=== PATIENT | female | born 1935 | race Caucasian/White ===

== ENCOUNTER 2017-05-31 15:37 | Inpatient (IN) | payer MEDICARE, BC ==
[2017-05-31] MEDS ORDERED: Meclizine 25 MG Tab PO PRN (17:16)
[2017-05-31] MEDS ORDERED: Albuterol HFA 18 Gm Inhaler INH PRN (17:16)
[2017-05-31] MEDS ORDERED: Carboxymethylcellulose Sodium 0.5% Ophth Soln 15 ML Bottle EYEBOTH PRN (18:30)
[2017-05-31] MEDS: Magnesium Oxide 500 MG Tab PO SCH (19:46)
[2017-05-31] MEDS: Pantoprazole 40 MG Tab.CR PO SCH (19:46)
[2017-05-31] MEDS: Budesonide 0.5 MG/2 ML Neb Susp INH SCH (20:49)
[2017-05-31] MEDS: atorvaSTATin 40 MG Tab PO SCH (20:54)
[2017-05-31] MEDS: Gabapentin 300 MG Cap PO SCH (20:54)
[2017-05-31] MEDS: Apixaban 5 MG Tab PO SCH (20:54)
[2017-05-31] MEDS: Metoprolol Tartrate 25 MG Tab PO SCH (20:55)
[2017-05-31] MEDS: Arformoterol 15 MCG/2 ML Neb Soln INH SCH (21:03)
[2017-05-31] MEDS: ALPRAZolam 0.25 MG Tab PO PRN (22:38)
[2017-06-01] MEDS: Cetirizine 10 MG Tab PO SCH (08:05)
[2017-06-01] MEDS: Allopurinol 100 MG Tab PO SCH (08:05)
[2017-06-01] MEDS: Gabapentin 300 MG Cap PO SCH ×2 (08:05→20:33)
[2017-06-01] MEDS: Digoxin 125 MCG Tab PO SCH (08:05)
[2017-06-01] MEDS: Metoprolol Tartrate 25 MG Tab PO SCH ×2 (08:05→20:36)
[2017-06-01] MEDS: Multivitamins with Minerals/Iron/Folic Acid/Lycopene Tab PO SCH (08:06)
[2017-06-01] MEDS: Aspirin 81 MG Tab.Chew PO SCH (08:06)
[2017-06-01] MEDS: Arformoterol 15 MCG/2 ML Neb Soln INH SCH ×2 (08:06→20:29)
[2017-06-01] MEDS: Pantoprazole 40 MG Tab.CR PO SCH ×2 (08:06→17:27)
[2017-06-01] MEDS: Budesonide 0.5 MG/2 ML Neb Susp INH SCH ×2 (08:06→20:40)
[2017-06-01] MEDS: Magnesium Oxide 500 MG Tab PO SCH ×2 (08:06→18:08)
[2017-06-01] MEDS: Apixaban 5 MG Tab PO SCH ×2 (09:16→20:34)
--- NOTE | 2017-06-01 09:49 | PCM.HP ---
H&P History of Present Illness - General Date of Service: 06/01/17 Admit Problem/Dx: Admission Diagnosis/Problem Admission Diagnosis/Problem Physical deconditioning Source of Information: Patient, Old Records - History of Present Illness Initial Comments - Free Text/Narative: Very pleasant 81-year-old female is here for rehabilitation due to a long acute care hospitalization due to fever unknown origin however thought to be possible viral etiology. She was placed in swing bed status after she was transferred here from [facility] in [place]. Patient was evaluated initially in the ED on May 16 due to chills and was determined her temperature was 103 slight elevated BNP of 292 however although workup was unremarkable for any inflammatory elevation with normal WBC, lactic acid, procalcitonin levels. Her UA and chest x-ray were negative. Patient was treated and released home she soon started having chills again and progressively worsening along with fever and some shortness of breath. Repeat examination was suggestive of urinary tract infection however CT of the chest at in pelvis were negative for any PE. Recent dx with nonoperable Stage I Lung Ca. was to start with radiation but is postponed due to recent illness. Over time she became quite debilitated and weak requiring physical therapy. Patient goals are to crease her endurance and stamina in order to be back more independently in her home. - Related Data Allergies/Adverse Reactions: Allergies Allergy/AdvReac Type Severity Reaction Status Date / Time adenosine Allergy Other Verified 05/31/17 16:25 erythromycin base Allergy Other Verified 05/31/17 16:25 ezetimibe Allergy Other Verified 05/31/17 16:25 fluticasone Allergy Other Verified 05/31/17 16:25 [From Advair Diskus] salmeterol Allergy Other Verified 05/31/17 16:25 [From Advair Diskus] tiotropium Allergy Other Verified 05/31/17 16:25 [From Spiriva with HandiHaler] Home Medications: Home Meds ALPRAZolam [Xanax] 0.25 - 0.5 mg PO DAILY PRN 05/31/17 [History] Albuterol [Ventolin HFA] 2 puff INH Q2H PRN 05/31/17 [History] Allopurinol [Zyloprim] 100 mg PO DAILY 05/31/17 [History] Apixaban [Eliquis] 5 mg PO BID 05/31/17 [History] Arformoterol [Brovana] 15 mcg INH BID 05/31/17 [History] Aspirin 81 mg PO MOWEFR@0800 05/31/17 [History] Budesonide [Pulmicort] 0.5 mg INH BID 05/31/17 [History] Cetirizine [ZyrTEC] 10 mg PO DAILY 05/31/17 [History] Cyanocobalamin (Vitamin B-12) [Cyanocobalamin Injection] 1,000 mcg IM Q30D 05/31 [History] Digoxin [Lanoxin] 125 mcg PO DAILY 05/31/17 [History] Gabapentin [Neurontin] 600 mg PO BID 05/31/17 [History] Ipratropium Mars 2 sprays NASBOTH TID 05/31/17 [History] Magnesium Oxide 400 mg PO BIDMEALS 05/31/17 [History] Meclizine [Antivert] 25 mg PO TID PRN 05/31/17 [History] Metoprolol Tartrate 25 mg PO BID 05/31/17 [History] Multivitamin [Multi-Vitamin Daily] 1 tab PO DAILY 05/31/17 [History] PEG 400/Hypromellose/Glycerin [Artificial Tears Drops] 1 - 2 drop EYEBOTH QID PRN 05/31/17 [History] Pantoprazole [ProTONIX] 40 mg PO BIDAC 05/31/17 [History] Vit C/E/Zn/Coppr/Lutein/Zeaxan [Preservision Areds 2 Softgel] 1 cap PO BID 05/31 [History] atorvaSTATin [Lipitor] 40 mg PO BEDTIME 05/31/17 [History] Past Medical History HEENT History: Reports: Cataract, Impaired Vision, Macular Degeneration Cardiovascular History: Reports: Afib, CAD, High Cholesterol, Hypertension, VT, SOB on Exertion Other Cardiovascular History: MIx2 Respiratory History: Reports: Bronchitis, Recurrent, COPD, Pneumonia, Recurrent , Sleep Apnea, SOB Genitourinary History: Reports: Acute Renal Failure, Urinary Incontinence BONBON DIPPER History: Reports: Musculoskeletal History: Reports: Arthritis, Fibromyalgia, Gout, Osteoarthritis , RA Neurological History: Reports: Headaches, Chronic Psychiatric History: Reports: Anxiety, Depression Endocrine/Metabolic History: Reports: Diabetes, Type II, Vitamin D Deficiency Other Endocrine/Metabolic History: diabetic neuropathy Hematologic History: Reports: Anemia, Blood Transfusion(s) Oncologic (Cancer) History: Reports: Lung, Malignant Melanoma - Infectious Disease History Infectious Disease History: Reports: Chicken Pox - Past Surgical History HEENT Surgical History: Reports: Cataract Surgery, Tonsillectomy Cardiovascular Surgical History: Reports: None Respiratory Surgical History: Reports: None GI Surgical History: Reports: Cholecystectomy, Colonoscopy Other GI Surgeries/Procedures: gastro bypass surgery Female Surgical History: Reports: Hysterectomy Endocrine Surgical History: Reports: None Neurological Surgical History: Reports: None Musculoskeletal Surgical History: Reports: None Oncologic Surgical History: Reports: None Social & Family History - Family History Cardiac: Reports: CAD, Other (See Below) (Father coronary artery disease, sister coronary artery disease along with brother and son) Respiratory: Reports: None GI: Reports: None : Reports: None OBGYN: Reports: None Musculoskeletal: Reports: None Neurological: Reports: None Psychiatric: Reports: Other (See Below) Other Psychiatric Family History: Brother has Alzheimer's disease Endocrine/Metabolic: Reports: None Hematologic: Reports: None Immunologic: Reports: None Dermatologic: Reports: None Oncologic: Reports: None - Tobacco Use Smoking Status *Q: Former Smoker Used Tobacco, but Quit: Yes Month Tobacco Last Used: 1979 - Recreational Drug Use Recreational Drug Use: No H&P Review of Systems - Review of Systems: Review Of Systems: See Below General: Reports: Diaphoresis, Decreased Appetite, Weight Loss. Denies: Night Sweats, Weight Gain HEENT: Reports: Sinus Congestion (uses nasal spray to dry her up. ). Denies: Hearing Changes, Sore Throat, Vertigo, Visual Changes Pulmonary: Reports: Shortness of Breath. Denies: Wheezing, Pleuritic Chest Pain , Cough (no more cough recent bronchitis), Sputum Cardiovascular: Reports: Orthopnea, PND, Edema Gastrointestinal: Denies: Abdominal Pain, Black Stool, Bloody Stool, Constipation, Diarrhea, Distension, Nausea, Vomiting Genitourinary: Reports: Other (some mild stress incontinence. ). Denies: Dysuria, Frequency, Burning, Pain, Retention Musculoskeletal: Reports: Back Pain, Other (generalized aches in back, elbows and knees,. OA) Skin: Reports: Other (skin cancer to suspicious leison to left forearm--3weeks ago dx. ) Psychiatric: Denies: Confusion, Anxiety Neurological: Reports: Gait Disturbance. Denies: Confusion, Dizziness, Headache , Numbness Hematologic/Lymphatic: Reports: No Symptoms Immunologic: Reports: No Symptoms Exam - Exam Exam: See Below - Vital Signs Vital Signs: Last Vital Signs Temp 96.5 F 06/01/17 06:15 Pulse 63 06/01/17 08:05 Resp 18 06/01/17 06:15 BP 119/57 L 06/01/17 08:05 Pulse Ox 95 06/01/17 06:15 Weight: 146 lb 6.4 oz - Exam Quality Assessment: Supplemental Oxygen, Skin Breakdown General: Alert, Oriented, Cooperative HEENT: EACs Clear, Hearing Intact, Pupils Reactive Neck: Supple, Trachea Midline, 2 Lungs: Clear to Auscultation, Normal Respiratory Effort Cardiovascular: Systolic Murmur GI/Abdominal Exam: Normal Bowel Sounds, Soft, Non-Tender, No Organomegaly, No Distention, No Abnormal Bruit, No Mass, Pelvis Stable (Female) Exam: Deferred Rectal (Female) Exam: Deferred Back Exam: No: CVA Tenderness (L), CVA Tenderness (R) Extremities: Pedal Edema Skin: Other (Recent suspicious mole removed left forearm--carcinoma per patient report). No: Wound, Incision Neuro Extensive - Motor, Sensory, Reflexes: CN II-XII Intact. No: Normal Gait ( Uses walker) Psychiatric: Alert, Normal Affect, Normal Mood, Depressed (Mild depression) - Patient Data Lab Results Last 24 hrs: Laboratory Results - last 24 hr 05/31/17 06/01/17 Range/Units 18:11 06:24 POC Glucose 148 H 85 (74-106) mg/dl *Q Meaningful Use (ADM) - VTE *Q VTE Criteria *Q: - Stroke *Q Stroke Criteria *Q: - AMI *Q AMI Criteria *Q: Problem List Initiated/Reviewed/Updated: Yes Orders Last 24hrs: Active Orders 24 hr Category Date Time Status Patient Status [ADT] Routine ADT 05/31/17 15:35 Ordered Ambulate [RC] ASDIRECTED Care 05/31/17 17:29 Active Antiembolic Devices [RC] 0900,2100 Care 05/31/17 17:42 Active Blood Glucose Check, Bedside [RC] BIDMEALS Care 05/31/17 17:29 Active Height and Weight [RC] Q7D Care 05/31/17 17:36 Active May Shower [RC] ASDIRECTED Care 05/31/17 17:29 Active Oxygen Therapy [RC] PRN Care 05/31/17 17:29 Active Up With Assistance [RC] ASDIRECTED Care 05/31/17 17:29 Active VTE/DVT Education [RC] PER UNIT ROUTINE Care 05/31/17 17:29 Active Vital Signs [RC] 0700,1500 Care 05/31/17 17:29 Active PT Evaluation and Treatment [CONS] Routine Cons 05/31/17 17:02 Active Respiratory Care Assess and Treatment [CONS] Routine Cons 05/31/17 17:29 Active [employer] Diet [DIET] Diet 05/31/17 Dinner Active ALPRAZolam [Xanax] Med 05/31/17 18:22 Active 0.25 mg PO DAILY PRN Albuterol [Ventolin HFA] Med 05/31/17 17:16 Active 0 gm INH Q2H PRN Allopurinol [Zyloprim] Med 06/01/17 09:00 Active 100 mg PO DAILY Apixaban [Eliquis] Med 05/31/17 21:00 Active 5 mg PO BID Arformoterol [Brovana] Med 05/31/17 20:00 Active 15 mcg INH BIDRT Aspirin Med 06/01/17 08:00 Active 81 mg PO MOWEFR@0800 Budesonide [Pulmicort] Med 05/31/17 20:00 Active 0.5 mg INH BIDRT Carboxymethylcellulose Sodium [Refresh Tears 0.5%] Med 05/31/17 18:30 Active 0 ml EYEBOTH QID PRN Cetirizine [ZyrTEC] Med 06/01/17 09:00 Active 10 mg PO DAILY Cyanocobalamin (Vitamin B12) [Vitamin B12] Med 06/16/17 09:00 Active 1,000 mcg IM Q30D Digoxin [Lanoxin] Med 06/01/17 09:00 Active 125 mcg PO DAILY FA/Lycopene/Lut/MV,Ca,Iron,Min [Centrum] Med 06/01/17 09:00 Active 1 tab PO DAILY Gabapentin [Neurontin] Med 05/31/17 21:00 Active 300 mg PO BID Ipratropium [Atrovent 0.06% Nasal [place]] Med 06/01/17 14:00 Ordered 0 ml NASBOTH TID Lutein/Minerals/Vit A,C & E [Ocuvite] Med 05/31/17 21:00 Active 1 each PO BID Magnesium Oxide Med 05/31/17 18:30 Active 500 mg PO BIDMEALS Meclizine [Antivert] Med 05/31/17 17:16 Active 25 mg PO TID PRN Metoprolol Tartrate [Lopressor] Med 05/31/17 21:00 Active 25 mg PO BID Pantoprazole [ProTONIX] Med 05/31/17 17:30 Active 40 mg PO BIDAC atorvaSTATin [Lipitor] Med 05/31/17 21:00 Active 40 mg PO BEDTIME Antiembolic Hose [OM.PC] Routine Oth 05/31/17 17:29 Ordered Resuscitation Status Routine Resus Stat 05/31/17 17:29 Ordered Medication Orders Albuterol (Ventolin Hfa) 0 gm INH Q2H PRN PRN Reason: shortness of breath Allopurinol (Zyloprim) 100 mg PO DAILY [facility] Last Admin: 06/01/17 08:05 Dose: 100 mg Alprazolam (Xanax) 0.25 mg PO DAILY PRN PRN Reason: Anxiety Last Admin: 05/31/17 22:38 Dose: 0.25 mg Apixaban (Eliquis) 5 mg PO BID [facility] Last Admin: 06/01/17 09:16 Dose: 5 mg Admin: 05/31/17 20:54 Dose: 5 mg Arformoterol Tartrate (Brovana) 15 mcg INH BIDRT [facility] Last Admin: 06/01/17 08:06 Dose: 15 mcg Admin: 05/31/17 21:03 Dose: 15 mcg Artificial Tears (Refresh Tears 0.5%) 0 ml EYEBOTH QID PRN PRN Reason: DRY EYES Aspirin (Aspirin) 81 mg PO MOWEFR@0800 [facility] Last Admin: 06/01/17 08:06 Dose: 81 mg Atorvastatin Calcium (Lipitor) 40 mg PO BEDTIME [facility] Last Admin: 05/31/17 20:54 Dose: 40 mg Budesonide (Pulmicort) 0.5 mg INH BIDRT [facility] Last Admin: 06/01/17 08:06 Dose: 0.5 mg Admin: 05/31/17 20:49 Dose: 0.5 mg Cetirizine HCl (Zyrtec) 10 mg PO DAILY [facility] Last Admin: 06/01/17 08:05 Dose: 10 mg Cyanocobalamin (Vitamin B12) 1,000 mcg IM Q30D [facility] Digoxin (Lanoxin) 125 mcg PO DAILY [facility] Last Admin: 06/01/17 08:05 Dose: 125 mcg Gabapentin (Neurontin) 300 mg PO BID [facility] Last Admin: 06/01/17 08:05 Dose: 300 mg Admin: 05/31/17 20:54 Dose: 300 mg Ipratropium Mars (Atrovent 0.06% Nasal [place]) 0 ml NASBOTH TID [facility] Magnesium Oxide (Magnesium Oxide) 500 mg PO BIDMEALS [facility] Last Admin: 06/01/17 08:06 Dose: 500 mg Admin: 05/31/17 19:46 Dose: 500 mg Meclizine HCl (Antivert) 25 mg PO TID PRN PRN Reason: Dizziness Metoprolol Tartrate (Lopressor) 25 mg PO BID [facility] Last Admin: 06/01/17 08:05 Dose: 25 mg Admin: 05/31/17 20:55 Dose: 25 mg Multivitamins/Minerals (Centrum) 1 tab PO DAILY [facility] Last Admin: 06/01/17 08:06 Dose: 1 tab Multivitamins/Minerals (Ocuvite) 1 each PO BID [facility] Pantoprazole Sodium (Protonix) 40 mg PO BIDAC [facility] Last Admin: 06/01/17 08:06 Dose: 40 mg Admin: 05/31/17 19:46 Dose: 40 mg Assessment/Plan Comment:: HISTORY OF PRESENT ILLNESS Very pleasant 81-year-old female is here for rehabilitation due to a long acute care hospitalization due to fever unknown origin however thought to be possible viral etiology. She was placed in swing bed status after she was transferred here from [facility] in [place]. Patient was evaluated initially in the ED on May 16 due to chills and was determined her temperature was 103 slight elevated BNP of 292 however although workup was unremarkable for any inflammatory elevation with normal WBC, lactic acid, procalcitonin levels. Her UA and chest x-ray were negative. Patient was treated and released home she soon started having chills again and progressively worsening along with fever and some shortness of breath. Repeat examination was suggestive of urinary tract infection however CT of the chest at in pelvis were negative for any PE. Recent dx with nonoperable Stage I Lung Ca. was to start with radiation but is postponed due to recent illness. Over time she became quite debilitated and weak requiring physical therapy. Patient goals are to crease her endurance and stamina in order to be back more independently in her home. Social history; Daughter lives with her, many changes, recent sold home, now lives in [place], [place]. Has reconciled with her new living situation however she misses her home on [address] and she is farther away from other children. Takes Alprazalam at night with recent increase in her freq. Primary Impression Physical deconditioning, initial physical therapy consultation. Patient ambulating quite well without ADD, slight unsteadiness when she gets fatigued however no loss of balance. Discussed the use of walker outside the home. Completing approximately 1.5-1.8 Mets on RA Lung CA, stage I, was to start with radiation but is postponed due to recent illness, Other chronic medical conditions Chronic obstructive pulmonary disease, Attempted on room air with sats 86-91%, HR 70s. LABA/JONES, AC/ICS, When on 1L sats were 88-92%. Completed exercises in the therapy room on room air with sats 88-91% at 1.5-1.8 METs. On selective beta cynthia Pulmonary HTN; severe, with pulmonary artery systolic pressure 80. Left-to- right shunts; patient likely will need right heart catheterization upon medical stability. Atrial fib, chronic, CVR with BB, Digoxin, Factor Xa inhibitor, [id number] CKD, creatinine stable 1.25 HTN, BB, stable HLD, statin therapy CAD angioplasty 1991, 1993. No ischemic picture, on ASA T2DM, Reviewed BG, acceptable. Recent A1c 6.2%. Neuropathy, continue with Neurontin HEMANT, CPAP at night Osteopenia, stable Overall plan and disposition, patient likely discharged back to her home [place], [place] over the next 48-72 hours. Continue with physical therapy. Her discharge summary should state that the patient is in need of physical therapy and home health nursing to help develop an in-home therapy program, evaluate home safety and assessment due to deconditioning and decrease in overall endurance. Home health nursing to help patient manage his multiple disease process. Patient will be home bound due to limited her decreased strength due to her COPD, need for oxygenation and overall weakness with shortness of breath with minimal activities.
[2017-06-01] MEDS: Lutein/Minerals/Vitamins A, C & E Tab PO SCH ×3 (10:48→20:33)
[2017-06-01] MEDS: Ipratropium 0.06% Nasal Spray 15 ML Bottle NASBOTH SCH ×2 (15:59→20:33)
[2017-06-01] MEDS: atorvaSTATin 40 MG Tab PO SCH (20:33)
[2017-06-01] MEDS: ALPRAZolam 0.25 MG Tab PO PRN (22:16)
[2017-06-02] MEDS: Arformoterol 15 MCG/2 ML Neb Soln INH SCH ×2 (07:08→20:44)
[2017-06-02] MEDS: Budesonide 0.5 MG/2 ML Neb Susp INH SCH ×2 (07:47→20:57)
[2017-06-02] MEDS: Pantoprazole 40 MG Tab.CR PO SCH ×2 (07:48→17:31)
[2017-06-02] MEDS: Ipratropium 0.06% Nasal Spray 15 ML Bottle NASBOTH SCH ×3 (08:31→20:58)
[2017-06-02] MEDS: Apixaban 5 MG Tab PO SCH ×2 (08:31→20:41)
[2017-06-02] MEDS: Magnesium Oxide 500 MG Tab PO SCH ×2 (08:31→17:32)
[2017-06-02] MEDS: Multivitamins with Minerals/Iron/Folic Acid/Lycopene Tab PO SCH (08:31)
[2017-06-02] MEDS: Metoprolol Tartrate 25 MG Tab PO SCH ×2 (08:32→20:44)
[2017-06-02] MEDS: Digoxin 125 MCG Tab PO SCH (08:32)
[2017-06-02] MEDS: Lutein/Minerals/Vitamins A, C & E Tab PO SCH ×2 (08:34→20:41)
[2017-06-02] MEDS: Gabapentin 300 MG Cap PO SCH ×2 (08:34→20:41)
[2017-06-02] MEDS: Allopurinol 100 MG Tab PO SCH (08:34)
[2017-06-02] MEDS: Cetirizine 10 MG Tab PO SCH (08:34)
[2017-06-02] MEDS: atorvaSTATin 40 MG Tab PO SCH (20:41)
[2017-06-02] MEDS: ALPRAZolam 0.25 MG Tab PO PRN (22:32)
[2017-06-03] MEDS: Arformoterol 15 MCG/2 ML Neb Soln INH SCH ×2 (07:09→20:23)
[2017-06-03] MEDS: Pantoprazole 40 MG Tab.CR PO SCH ×2 (07:45→17:42)
[2017-06-03] MEDS: Budesonide 0.5 MG/2 ML Neb Susp INH SCH ×2 (07:47→20:35)
[2017-06-03] MEDS: Cetirizine 10 MG Tab PO SCH (08:13)
[2017-06-03] MEDS: Lutein/Minerals/Vitamins A, C & E Tab PO SCH ×2 (08:13→20:33)
[2017-06-03] MEDS: Multivitamins with Minerals/Iron/Folic Acid/Lycopene Tab PO SCH (08:13)
[2017-06-03] MEDS: Apixaban 5 MG Tab PO SCH ×2 (08:16→20:33)
[2017-06-03] MEDS: Aspirin 81 MG Tab.Chew PO SCH (08:16)
[2017-06-03] MEDS: Magnesium Oxide 500 MG Tab PO SCH ×2 (08:16→17:42)
[2017-06-03] MEDS: Allopurinol 100 MG Tab PO SCH (08:17)
[2017-06-03] MEDS: Metoprolol Tartrate 25 MG Tab PO SCH ×2 (08:17→20:33)
[2017-06-03] MEDS: Digoxin 125 MCG Tab PO SCH (08:17)
[2017-06-03] MEDS: Gabapentin 300 MG Cap PO SCH ×2 (08:18→20:33)
[2017-06-03] MEDS: Ipratropium 0.06% Nasal Spray 15 ML Bottle NASBOTH SCH ×3 (10:46→20:44)
[2017-06-03] MEDS: atorvaSTATin 40 MG Tab PO SCH (20:33)
[2017-06-03] MEDS: ALPRAZolam 0.25 MG Tab PO PRN (22:10)
[2017-06-04] MEDS: Pantoprazole 40 MG Tab.CR PO SCH ×2 (07:47→17:57)
[2017-06-04] MEDS: Arformoterol 15 MCG/2 ML Neb Soln INH SCH ×2 (07:47→20:45)
[2017-06-04] MEDS: Gabapentin 300 MG Cap PO SCH ×2 (08:23→21:06)
[2017-06-04] MEDS: Ipratropium 0.06% Nasal Spray 15 ML Bottle NASBOTH SCH ×3 (08:23→21:06)
[2017-06-04] MEDS: Apixaban 5 MG Tab PO SCH ×2 (08:24→21:06)
[2017-06-04] MEDS: Magnesium Oxide 500 MG Tab PO SCH ×2 (08:24→17:57)
[2017-06-04] MEDS: Cetirizine 10 MG Tab PO SCH (08:25)
[2017-06-04] MEDS: Lutein/Minerals/Vitamins A, C & E Tab PO SCH ×2 (08:25→21:06)
[2017-06-04] MEDS: Budesonide 0.5 MG/2 ML Neb Susp INH SCH ×2 (08:25→20:58)
[2017-06-04] MEDS: Multivitamins with Minerals/Iron/Folic Acid/Lycopene Tab PO SCH (08:25)
[2017-06-04] MEDS: Allopurinol 100 MG Tab PO SCH (08:27)
[2017-06-04] MEDS: Digoxin 125 MCG Tab PO SCH (08:27)
[2017-06-04] MEDS: Metoprolol Tartrate 25 MG Tab PO SCH ×2 (08:28→21:07)
[2017-06-04] MEDS: atorvaSTATin 40 MG Tab PO SCH (21:06)
[2017-06-04] MEDS: ALPRAZolam 0.25 MG Tab PO PRN (22:17)
[2017-06-05] MEDS: Arformoterol 15 MCG/2 ML Neb Soln INH SCH (08:14)
[2017-06-05] MEDS: Magnesium Oxide 500 MG Tab PO SCH (08:16)
[2017-06-05] MEDS: Gabapentin 300 MG Cap PO SCH (08:16)
[2017-06-05] MEDS: Digoxin 125 MCG Tab PO SCH (08:16)
[2017-06-05] MEDS: Apixaban 5 MG Tab PO SCH (08:17)
[2017-06-05] MEDS: Cetirizine 10 MG Tab PO SCH (08:17)
[2017-06-05] MEDS: Multivitamins with Minerals/Iron/Folic Acid/Lycopene Tab PO SCH (08:17)
[2017-06-05] MEDS: Pantoprazole 40 MG Tab.CR PO SCH (08:17)
[2017-06-05] MEDS: Lutein/Minerals/Vitamins A, C & E Tab PO SCH (08:17)
[2017-06-05] MEDS: Allopurinol 100 MG Tab PO SCH (08:17)
[2017-06-05] MEDS: Metoprolol Tartrate 25 MG Tab PO SCH (08:17)
[2017-06-05] MEDS: Ipratropium 0.06% Nasal Spray 15 ML Bottle NASBOTH SCH (08:19)
[2017-06-05] MEDS: Budesonide 0.5 MG/2 ML Neb Susp INH SCH (08:19)
[2017-06-05] MEDS ORDERED: Acetaminophen 325 MG Tab PO ONE (12:18)
--- NOTE | 2017-06-07 08:17 | DISCH ---
DISCHARGE DIAGNOSIS: Physical deconditioning with improvement. Remaining medical conditions include chronic obstructive pulmonary disease, pulmonary hypertension, atrial fibrillation, chronic kidney disease, hypertension, HDL, coronary artery disease, type 2 diabetes, neuropathy, osteoarthritis, and osteopenia. BRIEF HISTORY: This is an 81-year-old female who was admitted to swing bed services at [facility] for rehabilitation due to a long acute care hospitalization. She had developed a fever of unknown origin. It was thought that the etiology was viral. She was placed in swing bed status after she was transferred here from [facility] in [place]. Initially, she was evaluated in the ED on 05/16/2017 due to chills and it was determined her temperature was 103 and with a slightly elevated BNP of 292. Workup was unremarkable for any inflammatory elevation with normal WBC, lactic acid, procalcitonin levels. UA and chest x-ray were negative at that time. She was treated and released home. She did start to have chills again and her condition progressively worsened. She noted that she continued to have fever and shortness of breath. A followup examination indicated a UTI. CT of the chest and pelvis were negative. Her recent diagnosis was nonoperable stage I lung cancer. She was to start radiation; however, this was postponed due to her illness. She became quite debilitated and weak and required physical therapy services to increase her strength, endurance, and stamina. HOSPITAL SUMMARY: The patient was admitted to the swing bed care unit. She received physical therapy services for increased strength and endurance. There were no medical complications during her swing bed stay. DISCHARGE MEDICATIONS: Her medications on discharge include Xanax 0.25 daily, albuterol inhaler q.2 hours p.r.n., Zyloprim 100 daily, Eliquis 5 mg b.i.d., Brovana 50 mcg b.i.d., aspirin 81 daily, Pulmicort 0.5 b.i.d., Zyrtec 10 mg daily, vitamin B12 injection q.30 days, digoxin 125 mcg daily, Neurontin 600 b.i.d. She is on ipratropium bromide two sprays t.i.d., magnesium oxide 400 b.i.d., Antivert 25 t.i.d. p.r.n., metoprolol 25 mg b.i.d., multivitamin daily. She is also on artificial tear drops, Protonix 40 mg, and PreserVision eye drops along with Lipitor 40 mg at bedtime. LABS AND DIAGNOSTICS: Labs and diagnostics during her hospital course where she did have a panel obtained, sodium 143, potassium 4.8, chloride is 105, BUN 23 with a creatinine of 1.2, her glucose on that panel was 121. Blood sugar today was 93 mg percent. Her a.m. ranges have been 140, 86, and 101 mg percent. PHYSICAL EXAMINATION: GENERAL: She is alert and oriented. She is quite cooperative. HEENT: Head is normocephalic, conjunctivae clear, no nasal drainage. NECK: Supple without rigidity. No lymphadenopathy. RESPIRATORY: Lung sounds are clear to auscultation. CARDIOVASCULAR: Heart rate and rhythm is regular. S1, S2. Systolic murmur is present. ABDOMEN: Soft, nontender, bowel sounds are present. EXTREMITIES: Trace of lower extremity edema. INTEGUMENTARY: Skin is warm and dry to touch. DISPOSITION AND DISCHARGE INSTRUCTIONS: The patient will be discharged to her home setting in [place]. Family will be providing her transportation to her home. We will continue physical therapy and home health nursing. It is the intent to develop an in-home therapy program, evaluate home safety, and assessment of the home status due to her deconditioning and her overall endurance. Home health nursing will help manage her multiple disease processes. Currently, she is home bound due to her decreased strength and her COPD, need for oxygenation, and her overall weakness with shortness of breath and minimal activity level. The patient was advised to notify the hospital should she has any post discharge questions or concerns. /[id number]/MODL
[2017-06-16] MEDS ORDERED: Cyanocobalamin (Vitamin B12) 1,000 MCG/ML SDV IM SCH (09:00)
== END 2017-06-05 13:05 | disposition home health service (06) | DRG 556 ==
LOC: KA.MS 15:37
PROVIDERS: ADMIT Nurse Practitioner Family; ATTEND Family Medicine
DX: M62.81 Muscle weakness (generalized) (principal); C34.90 Malignant neoplasm of unspecified part of unspecified bronchus or lung; J44.9 Chronic obstructive pulmonary disease, unspecified; I27.20 Pulmonary hypertension, unspecified; I48.2 Chronic atrial fibrillation; I12.9 Hypertensive chronic kidney disease with stage 1 through stage 4 chronic kidney disease, or unspecified chronic kidney disease; E11.22 Type 2 diabetes mellitus with diabetic chronic kidney disease; N18.9 Chronic kidney disease, unspecified; E78.5 Hyperlipidemia, unspecified; I25.10 Atherosclerotic heart disease of native coronary artery without angina pectoris; E11.40 Type 2 diabetes mellitus with diabetic neuropathy, unspecified; G47.33 Obstructive sleep apnea (adult) (pediatric); F41.9 Anxiety disorder, unspecified; F32.9 Major depressive disorder, single episode, unspecified; M85.80 Other specified disorders of bone density and structure, unspecified site; M10.9 Gout, unspecified; M19.90 Unspecified osteoarthritis, unspecified site; I25.2 Old myocardial infarction; Z98.61 Coronary angioplasty status; Z79.899 Other long term (current) drug therapy; Z79.51 Long term (current) use of inhaled steroids; Z79.82 Long term (current) use of aspirin; Z79.01 Long term (current) use of anticoagulants; Z87.891 Personal history of nicotine dependence
CPT/HCPCS: 36415; 80048; 82962; 94640; 97110-GP; 97162-GP; A9270-GY